=== PATIENT | male | born 1970 | race Caucasian/White ===

== ENCOUNTER → 2018-12-04 | Outpatient (CLI) | payer BC ==
--- NOTE | 2018-12-04 17:59 | P.SLEEP ---
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 According to the , the patient has very loud snoring and he was noted to quit breathing at nighttime. This of still is a concern for obstruct victor manuel sleep apnea and the patient was referred to me for further investigation. The patient says that he sleeps fine. He goes to bed at around 11:30 PM wakes up 7 AM in the morning. He works out of his house and he doesn't do any major or long-distance driving. He feels fine during the day specially when he sleeps a good 6 hours. Denies having any major hypersomnia or sleepiness during the day. He falls asleep easily within a few minutes. He does not take any naps during the day. He prefers to sleep on his side and he watches TV in his bedroom. He does drink caffeinated beverages in the form of coffee approximately 4 of them on a daily basis. He used to weight 150 pounds and currently is up to 275 and he has gained significant amount of weight in the order of 25 pounds over the past 10 years. He wakes up once or twice in the middle of the night. No reported unusual movements or behavior during sleep. No episodes of any dreamlike images or hallucinations when falling sleep or while waking up from sleep. No reported episodes of sudden muscle weakness or paralysis when laughing or when excited and there is no reported history of motor vehicle accident because of feeling drowsy or sleepy. He snoring and then worsens as the patient is gaining weight and the patient is currently trying to lose some. He has a brother with obstructive sleep apnea. There is no substance abuse. No head trauma, concussion or meningitis. No history of any psychiatric disorder. Review of Systems Constitutional: Reports daytime sleepiness, Reports fatigue, Reports weight gain Eyes: denies as per HPI, denies blurred vision, denies bulging eye, denies decreased vision, denies diplopia, denies discharge, denies dry eye, denies irritation, denies itching, denies pain, denies photophobia, denies loss of peripheral vision, denies loss of vision, denies tunnel vision/blind spots Ears: deny: decreased hearing, ear discharge, earache, tinnitus Ears, nose, mouth and throat: Denies headache, Denies sore throat Breasts: absent: as per HPI, gynecomastia Cardiovascular: Denies chest pain, Denies shortness of breath Respiratory: Reports snoring Gastrointestinal: Reports as per HPI Musculoskeletal: Reports as per HPI Musculoskeletal: absent: ankle pain, ankle stiffness, ankle swelling, as per HPI, elbow pain, elbow stiffness, elbow swelling, foot pain, foot stiffness, foot swelling, hand pain, hand stiffness, hand swelling, hip pain, hip stiffness, hip swelling, knee pain, knee stiffness, knee swelling, shoulder pain, shoulder stiffness, shoulder swelling, wrist pain, wrist stiffness, wrist swelling Integumentary: Reports as per HPI Neurological: Reports as per HPI Psychiatric: Reports as per HPI Endocrine: Reports as per HPI, Reports fatigue Hematologic/Lymphatic: Reports as per HPI Allergic/Immunologic: Reports as per HPI Past Medical History Past Medical History: Diabetes Mellitus, Hyperlipidemia, Hypertension Past Surgical History: No Surgical Hx Reported Smoking Status: Never smoker Past Alcohol Use History: Occasional Past Drug Use History: None Reported - Past Family History Brother(s) Family Medical History: Sleep Apnea/CPAP/BIPAP Medications and Allergies Home Medications and Allergies Comment(s): Omeprazole 20 mg by mouth daily, metformin 1000 mg once a day, lisinopril 20 mg by mouth daily and Lipitor some milligrams by mouth daily. Physical Exam Vitals: EP is 127/83, pulse is 84, respirations 16, temperature 98.5, saturation 6% on room air, weight is 248, height is 5 feet and 10 inches, BMI 35.5, 13 inches and saturations are 96% on room air. The patient appeared well nourished and normally developed. Vital signs as documented. Head exam is unremarkable. No scleral icterus or corneal arcus noted. Neck is without jugular venous distension, thyromegaly, or carotid bruits. Patient has a Mallampati class IV with significant crowding of the posterior oropharynx. Carotid upstrokes are brisk bilaterally. Lungs are clear to auscultation and percussion. Cardiac exam reveals the PMI to be normally sized and situated. Rhythm is regular. First and second heart sounds normal. No murmurs, rubs or gallops. Abdominal exam reveals normal bowel sounds, no masses, no organomegaly and no aortic enlargement. Extremities are nonedematous and both femoral and pedal pulses are normal.Examination of the skin revealed no evidence of significant rashes, suspicious appearing nevi or other concerning lesions. Neurologically the patient is awake and alert and there is no focal neurological deficits. Assessment and Plan Plan: Assessment 1 loud snoring along with witnessed apneas, consider underlying obstructive sleep apnea 2 hypersomnia/fatigue likely secondary to VIVIANA 3 obesity with a BMI of 35.5 4 diabetes mellitus type 2 currently on metformin 5 hypertension well controlled with lisinopril 6 hyperlipidemia well-controlled with Lipitor Plan Encourage weight loss. We'll ask the patient to implement sleep hygiene measures. We will plan to proceed with screening polysomnogram due to increased suspicion for obstructive sleep apnea. We'll decide on treatment based on results of sleep study. This will largely depend on his symptoms and the severity of his underlying obstructive sleep apnea is present. We'll continue to follow. Sleep Note - Sleep Note Sleep Note: Temperature: Pulse Rate: 84 Respiratory Rate: 16 Blood Pressure: 127/83 SpO2: 96% Height: 5 feet and 10 inches Weight: 148 pounds BMI: 35.5 Neck Circumference: 18 inches
== END | disposition home or self-care (01) ==
LOC: SLEEP 16:11
PROVIDERS: ATTEND Internal Medicine Critical Care Medicine
DX: Z53.9 Procedure and treatment not carried out, unspecified reason (principal)

== ENCOUNTER → 2019-05-07 | Outpatient (CLI) | payer BC ==
--- NOTE | 2019-05-07 15:55 | PN ---
PROGRESS NOTE This is a 49-year-old male patient diagnosed having severe symptomatic obstructive sleep apnea with an AHI of 70. The patient was given a VPAP Auto, minimum EPAP of 10, maximum pressure of 22, with a pressure support of 4. Today he is coming in for a compliancy check. The patient reports that he is doing great. He is feeling much improved. He has much more energy during the day. He does not fall asleep during the day or while performing routine activities. I checked his compliance data, and over the past 30 days the patient has been averaging around 7.6 hours of VPAP use per night. VPAP use for more than 4 hours is 100%. Average pressure utilized is 21/17. Leak is 17 L/minute with a tidal volume of 500 and a minute ventilation of 10.1 liters. AHI is down to 2.1. He is utilizing a medium-sized Simplus full-face mask. I noted that the patient has gained weight. At the time of his initial diagnosis he used to weight 248 and currently he is up to 261. Despite his weight gain, the patient reports good response, he is very happy with his overall clinical response, and his Bellaire score is down to zero. REVIEW OF SYSTEMS: Fourteen-point review of systems was done. Positive findings were all mentioned above in the history of present illness. No major hypersomnia or sleepiness. No nocturnal chest pain, aerophagia, nausea, vomiting, gas in his stomach or abdominal distention or flatus. It is positive for weight gain on the order of 10 to 11 pounds since his last evaluation here in the sleep center. PHYSICAL EXAMINATION: BP is 140/75, pulse 70, respirations 16, weight 261, temperature 98.3, saturation 95% on room air. GENERAL APPEARANCE: Calm, comfortable. HEAD: Atraumatic, normocephalic. NECK: Supple. No JVD. No goiter or neck masses. Mallampati class IV. LUNGS: Clear to auscultation. HEART: Heart sounds are regular rate and rhythm. Normal S1, S2. No S3, S4. No murmurs. ABDOMEN: Obese, soft, nontender. Organs cannot accurately palpated. There is no direct tenderness, rebound tenderness or guarding. EXTREMITIES: No edema. No cyanosis or clubbing. NEUROLOGIC: Alert and oriented x3. No focal neurological deficits. PSYCHIATRIC: Negative for anxiety or depression. IMPRESSION: 1. Severe obstructive sleep apnea with an apnea/hypopnea index of 70, currently on VPAP Auto with the above-mentioned settings. Treatment has been extremely successful. 2. Hypersomnia, recovered. 3. Obesity. Current weight is up to 261. 4. Hypersomnia. Bellaire score is down to zero. 5. Diabetes mellitus. 6. Hypertension. 7. Hyperlipidemia. PLAN: 1. Encourage weight loss. 2. Continue using BiPAP, and the patient is on the VPAP Auto mode. 3. Clinically improved and the patient is benefitting from his treatment. No need for any further adjustments. Renew the mask and supplies and see me back in a year's time in followup. No other complaints otherwise for now. MMODL / IJN: [id number] /
== END | disposition home or self-care (01) ==
LOC: SLEEP 13:27
PROVIDERS: ATTEND Internal Medicine Critical Care Medicine
DX: G47.33 Obstructive sleep apnea (adult) (pediatric) (principal); E66.9 Obesity, unspecified; E11.9 Type 2 diabetes mellitus without complications; I10 Essential (primary) hypertension; E78.5 Hyperlipidemia, unspecified; Z99.89 Dependence on other enabling machines and devices

== ENCOUNTER 2020-02-10 11:59 | Day surgery (SDC) | payer BC ==
[2020-02-10] MEDS ORDERED: LIDOCAINE 1% (10MG/ML) FOR IV START INTRADERMA ONE (12:31)
[2020-02-10] MEDS ORDERED: LACTATED RINGERS 1,000 ML IV ONE (12:31)
[2020-02-10 12:41] LABS: Glucose,Whole Blood 96 mg/dL (75-99)
[2020-02-10] MEDS ORDERED: MIDAZOLAM 2 MG/2 ML VIAL ONE (12:47)
[2020-02-10] MEDS ORDERED: LIDOCAINE 1% INJ 10MG/ML (20 ML MDV) ONE (12:47)
[2020-02-10] MEDS ORDERED: fentaNYL (PF) 50 MCG/ML 2 ML AMP ONE (12:47)
[2020-02-10] MEDS ORDERED: PROPOFOL 10 MG/ML 20 ML VIAL IV ONE (12:47)
--- NOTE | 2020-02-10 13:24 | P.PCN ---
Date of Procedure: 02/10/20 Description of Procedure: BRIEF HISTORY: Patient is a 49-year-old male presenting for outpatient colonoscopy for screening for malignant neoplasm of the colon. No change in bowel habits, blood per rectum or abdominal pain reported. Denies any family history of colon cancer. PROCEDURE PERFORMED: Colonoscopy with polypectomy. PREOPERATIVE DIAGNOSIS: Screening for malignant neoplasm in the colon. ESTIMATED BLOOD LOSS: Minimal. IV sedation per Anesthesia. PROCEDURE: After informed consent was obtained, the patient, was brought into the endoscopy unit. IV sedation was administered by Anesthesia under continuous monitoring. Digital rectal examination was normal. Initially the Olympus CF-190 flexible video colonoscope was then inserted in the rectum, gradually advanced into the cecum without any difficulty. Careful examination was performed as the scope was gradually being withdrawn. Ileocecal valve and the appendiceal orifice were visualized and appeared normal. Prep was excellent. Mucosa of the cecum, ascending colon, transverse colon, descending colon, sigmoid colon, and rectum appeared normal. 3 polyps removed with cold snare polypectomy measuring 4 mm from the transverse colon, 3 mm from the descending colon and 4 mm from the sigmoid colon. A few scattered diverticula noted in the sigmoid colon. Retroflexion was performed in the rectum and no lesions were seen. The patient tolerated the procedure well. IMPRESSION: 3 polyps removed with cold snare polypectomy from the transverse colon, descending colon and sigmoid colon. Mild sigmoid diverticulosis. RECOMMENDATIONS: Findings of this examination were discussed with the patient and his family. Okay to resume diet. Okay to resume medication. Await pathology from polypectomies. Would recommend repeat colonoscopy in 5 years pending pathology from polypectomies.
[2020-02-10 13:27] VITALS: RESP 16
[2020-02-10 13:44] VITALS: BP 120/79; PULSE 64
== END 2020-02-10 14:15 | disposition home or self-care (01) ==
LOC: ORWHC2ENDO 11:59
PROVIDERS: ATTEND Internal Medicine
DX: Z12.11 Encounter for screening for malignant neoplasm of colon (principal); D12.3 Benign neoplasm of transverse colon; D12.4 Benign neoplasm of descending colon; K63.5 Polyp of colon; K57.30 Diverticulosis of large intestine without perforation or abscess without bleeding; I10 Essential (primary) hypertension; G47.33 Obstructive sleep apnea (adult) (pediatric); E78.5 Hyperlipidemia, unspecified; E11.9 Type 2 diabetes mellitus without complications; K21.9 Gastro-esophageal reflux disease without esophagitis; Z88.1 Allergy status to other antibiotic agents; Z79.84 Long term (current) use of oral hypoglycemic drugs; Z79.899 Other long term (current) drug therapy
CPT/HCPCS: 88305; 45385; J2250; J2001; J3010; J2704

== ENCOUNTER 2021-02-18 06:18 | Inpatient (IN) | payer BC ==
[2021-02-18] MEDS ORDERED: ASPIRIN 81 MG PO STA (06:44)
[2021-02-18] MEDS ORDERED: NITROGLYCERIN SL TABS 0.4 MG TAB SUBLINGUAL STA (06:45)
--- NOTE | 2021-02-18 06:50 | ED ---
Chest Pain HPI - General Chief Complaint: Chest Pain Stated Complaint: Chest Pain Time Seen by Provider: 02/18/21 06:33 Source: patient, RN notes reviewed Mode of arrival: ambulatory Limitations: no limitations - History of Present Illness Initial Comments: 50-year-old male presents emergency Department with chief complaint of chest discomfort. Patient states that he woke around 5:30 and had symptoms. Patient states that he started having pain in his chest that radiated out, pain in his upper back. Patient states that this feels better if he presses on his upper back. Started noticed some achiness in his jaw which seemed out of the usual. Denies any diaphoretic episodes, nausea vomiting. Does have a history reflux states it does not feel anything similar. Patient does have a history of diabetes, hyperlipidemia. Patient states he does take hypertension meds but states that it's more for diuretic. Patient has no history of aortic issues no prior cardiac cath, no prior stress test. Patient did take 281 mg aspirin prior arrival. - Related Data Home Medications Medication Instructions Recorded Confirmed Omeprazole 20 mg PO HS 02/06/20 02/18/21 Pravastatin Sodium [Pravachol] 10 mg PO HS 02/06/20 02/18/21 metFORMIN HCL 500 mg PO HS 02/06/20 02/18/21 Aspirin EC [Ecotrin Low Dose] 162 mg PO ONCE PRN 02/18/21 02/18/21 lisinopriL [Zestril] 10 mg PO HS 02/18/21 02/18/21 Allergies Allergy/AdvReac Type Severity Reaction Status Date / Time clarithromycin [From Biaxin] Allergy Dyspnea Verified 02/18/21 08:14 Review of Systems ROS Statement: Those systems with pertinent positive or pertinent negative responses have been documented in the HPI. ROS Other: All systems not noted in ROS Statement are negative. EKG Findings - EKG Comments: EKG Findings:: EKG performed at 6:34 normal sinus rhythm rate of 66 NM 180 QRS 88 QT/QTC 426 / 440 Past Medical History Past Medical History: Diabetes Mellitus, GERD/Reflux, Hyperlipidemia, Hypertension, Sleep Apnea/CPAP/BIPAP Additional Past Medical History / Comment(s): NOT TAKING MEDS FOR BP ( PATIENT STATES HE DOESNT BELIEVE HE HAS HIGH BP). BIPAP. History of Any Multi-Drug Resistant Organisms: None Reported Past Surgical History: No Surgical Hx Reported Additional Past Surgical History / Comment(s): WISMER. COLONOSCOPY/EGD. Past Anesthesia/Blood Transfusion Reactions: No Reported Reaction Past Psychological History: No Psychological Hx Reported Smoking Status: Current every day smoker Past Alcohol Use History: Occasional Past Drug Use History: None Reported - Past Family History Brother(s) Family Medical History: Sleep Apnea/CPAP/BIPAP General Exam Limitations: no limitations General appearance: alert, in no apparent distress Head exam: Present: atraumatic, normocephalic, normal inspection Eye exam: Present: normal appearance, PERRL, EOMI. Absent: scleral icterus, conjunctival injection, periorbital swelling ENT exam: Present: normal exam, normal oropharynx, mucous membranes moist Neck exam: Present: normal inspection, full ROM. Absent: tenderness, meningismus, lymphadenopathy Respiratory exam: Present: normal lung sounds bilaterally. Absent: respiratory distress, wheezes, rales, rhonchi, stridor Cardiovascular Exam: Present: regular rate, normal rhythm, normal heart sounds. Absent: systolic murmur, diastolic murmur, rubs, gallop, clicks GI/Abdominal exam: Present: soft, normal bowel sounds. Absent: distended, tenderness, guarding, rebound, rigid Course Vital Signs 02/18/21 02/18/21 02/18/21 06:29 06:36 07:09 Temperature 98.2 F Pulse Rate 65 68 65 Respiratory 18 17 18 Rate Blood Pressure 136/89 145/106 118/74 O2 Sat by Pulse 97 96 Oximetry 02/18/21 07:48 Temperature Pulse Rate 63 Respiratory Rate Blood Pressure 118/89 O2 Sat by Pulse Oximetry Chest Pain MDM - [facility] Patient had relief of chest discomfort with nitro. Nitropaste was applied. Patient's initial labs are unremarkable. Patient be admitted for cardiac evaluation could cardiology, echocardiogram, repeat labs. Disposition Clinical Impression: Chest pain Disposition: ADMITTED IP TO THIS HOSP Condition: Fair Referrals: Cezar Madrigal MD [Primary Care Provider] - 1-2 days
--- NOTE | 2021-02-18 06:59 | XR ---
EXAMINATION TYPE: XR chest 2V DATE OF EXAM: 02/18/2021 COMPARISON: NONE HISTORY: Chest pain : FINDINGS: Heart and mediastinum are normal. There is small area of subsegmental atelectasis left lower lobe. Th ere are no hilar masses. There are chest leads. Costophrenic angles are clear. IMPRESSION: Minimal subsegmental atelectasis left lower lobe. Normal heart.
[2021-02-18 07:10] VITALS: RESP 18
[2021-02-18] MEDS ORDERED: NITROGLYCERIN OINT 1 INCH/GM PACKET TOPICAL STA (07:28)
[2021-02-18 07:33] LABS: Basophils # (A) 0.1 k/uL (0-0.2); Basophils % (A) 1 %; Eosinophils # (A) 0.3 k/uL (0-0.7); Eosinophils % (A) 3 %; HCT 46.9 % (39.0-53.0); HGB 15.5 gm/dL (13.0-17.5); Lymphocytes # (A) 1.8 k/uL (1.0-4.8); Lymphocytes % (A) 23 %; MCH 31.7 pg (25.0-35.0); MCHC 33.1 g/dL (31.0-37.0); MCV 95.6 fL (80.0-100.0); Mean Platelet Volume 7.6; Monocytes # (A) 0.5 k/uL (0-1.0); Monocytes % (A) 6 %; Neutrophils # (A) 5.2 k/uL (1.3-7.7); Neutrophils % (A) 65 %; Platelet Count 269 k/uL (150-450); RDW 13.5 % (11.5-15.5); WBC 7.9 k/uL (3.8-10.6)
[2021-02-18 07:51] LABS: ALT 28 U/L (4-49); AST 28 U/L (17-59); African American GFR (CKD) >90 (>60 ml/min/1.73 sqM); Albumin 3.9 g/dL (3.5-5.0); Alkaline Phosphatase 67 U/L (38-126); Anion Gap 10 mmol/L; Blood Urea Nitrogen 17 mg/dL (9-20); Calcium 9.6 mg/dL (8.4-10.2); Carbon Dioxide 22 mmol/L (22-30); Chloride 105 mmol/L (98-107); Glucose 158 mg/dL (74-99); Lipase 106 U/L (23-300); Magnesium 1.9 mg/dL (1.6-2.3); Non-African American GFR(CKD) >90 (>60 ml/min/1.73 sqM); Potassium 4.4 mmol/L (3.5-5.1); Sodium 137 mmol/L (137-145); Total Bilirubin 0.4 mg/dL (0.2-1.3); Total Protein 6.8 g/dL (6.3-8.2)
[2021-02-18 07:52] LABS: INR 0.9 (<1.2); Partial Thromboplastin Time 23.1 sec (22.0-30.0); Prothrombin Time 9.9 sec (9.0-12.0)
[2021-02-18] MEDS ORDERED: NITROGLYCERIN SL TABS 0.4 MG TAB SUBLINGUAL PRN ×2 (08:31→13:26)
[2021-02-18] MEDS ORDERED: HEPARIN SODIUM 1,000 UN/ML (10ML VL) IV PRN (09:26)
[2021-02-18] MEDS ORDERED: HEPARIN SODIUM 1,000 UN/ML (10ML VL) IV ONE (09:26)
[2021-02-18] MEDS ORDERED: ATORVASTATIN 80 MG TAB PO STA (09:27)
[2021-02-18] MEDS ORDERED: ALPRAZolam 0.25 MG TAB PO PRN (09:27)
[2021-02-18] MEDS ORDERED: ALPRAZolam 0.5 MG TAB PO PRN (09:27)
[2021-02-18] MEDS ORDERED: HEPARIN SOD,PORK IN 0.45% NACL 25,000 UNIT in 0.45% NACL 1 250ML.BAG IV SCH (09:30)
--- NOTE | 2021-02-18 09:42 | P.CRDCN ---
History of Present Illness History of present illness: HISTORY OF PRESENTING ILLNESS This is a pleasant 50-year-old male past medical history significant for type 2 diabetes, chronic nicotine dependence, shortness sleep apnea, dyslipidemia. 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 We have been asked to see in consultation for chest pain. Patient is seen and examined at bedside, patient states this morning he had acute onset of chest pain, woke him up out of sleep around 5:30am. Pain located in the center of his chest, radiated up to his jaw and his back. His jaw felt like an aching pain and he had pressure in his upper back. He states the p ain was intermittent, he took it aspirin and the pain eventually resolved however then returned again. Patient presented to the emergency department for further evaluation. He states in the ER in Triage the chest pain returned, he was given sublingual nitroglycerin and had improvement in symptoms. He denies any associated diaphoresis, nausea, shortness of breath, lightheadedness, dizziness, syncope. He denies any history of UT, coronary artery disease, hypertension, stroke, seizure. He denies any aggravating factors. He denies any symptoms of orthopnea PND. He is a current every day smoker. He denies any alcohol or illicit drug use. He denies any family history of heart disease. DIAGNOSTICS EKG reveals sinus rhythm, heart 66, nonspecific ST or T-wave abnormalities. No prior EKG to compare. Chest xray report revealed minimal atelectasis left lower lobe. No acute cardiopulmonary process. Laboratory reviewed, CBC unremarkable, sodium 137, potassium 4.4, BUN 17, serum creatinine 0.8, glucose 158, magnesium 1.9, troponin negative 1, proBNP 33, lipase within normal limits. Current home medications include metformin 500 mg daily, lisinopril 10 mg nightly, pravastatin 10 mg nightly, omeprazole 20 mg nightly, aspirin 162mg PRN REVIEW OF SYSTEMS At the time of my exam: CONSTITUTIONAL: Denies fever or chills. CARDIOVASCULAR: + chest pain with radiation to jaw and upper back, Denies shortness of breath, orthopnea, PND or palpitations. RESPIRATORY: Denies cough. GASTROINTESTINAL: Denies abdominal pain, diarrhea, constipation, nausea or vomiting. MUSCULOSKELETAL: Denies myalgias. NEUROLOGIC: Denies numbness, tingling, headache or weakness. ENDOCRINE: Denies fatigue, weight change, polydipsia or polyurina. GENITOURINARY: Denies burning, hematuria or urgency with micturation. HEMATOLOGIC: Denies history of anemia or bleeding. PHYSICAL EXAMINATION Blood pressure 106/79, heart 61, afebrile and saturation 97% on room air CONSTITUTIONAL: No apparent distress. HEENT: Head is normocephalic. Pupils are equal, round. Sclerae anicteric. Mucous membranes of the mouth are moist. No JVD. No carotid bruit. CHEST EXAMINATION: Lungs are clear to auscultation. No chest wall tenderness is noted on palpation or with deep breathing. HEART EXAMINATION: Regular rate and rhythm. S1, S2 heard. No murmurs, gallops or rub. ABDOMEN: Soft, nontender. Positive bowel sounds. EXTREMITIES: 2+ peripheral pulses, no lower extremity edema and no calf tenderness. SKIN:warm, dry NEUROLOGIC EXAMINATION: Patient is awake, alert and oriented x3. ASSESSMENT Unstable angina Type 2 diabetes Chronic nicotine dependence History of obstructive sleep apnea History of hyperlipidemia PLAN -Patient's symptoms are concerning for unstable angina, we are recommending cardiac catheterization at this time. Patient agreeable. -I have discussed the risks, benefits and alternative therapies for the above- mentioned procedure and for both sedation/analgesia as well as necessary blood product administration, if indicated, as they pertain to this patient. The patient has indicated understanding and acceptance of the risks and procedures discussed. Questions have been answered appropriately and he is agreeable to move forward with the above-stated procedure. -We will start IV heparin drip, continue aspirin and statin, PRN nitroglycerin -Obtain 2D echocardiogram and doppler study to assess cardiac structure and function. -Smoking cessation discussed and highly recommended. -Further recommendations based on clinical course Thank you kindly for this consultation. Nurse Practitioner note has been reviewed, I agree with a documented findings and plan of care. Patient was seen and examined. Past Medical History Past Medical History: Diabetes Mellitus, GERD/Reflux, Hearing Disorder / Deafness, Hyperlipidemia, Osteoarthritis (OA), Sleep Apnea/CPAP/BIPAP Additional Past Medical History / Comment(s): Pt states he takes zestril to protect his kidneys/not hypertensive, NIDDM, benign colon polyp, diverticular di sease, VIVIANA/bipap used, bilateral occasional tinnitisR shoulder arthritis, occasional migraines. History of Any Multi-Drug Resistant Organisms: None Reported Past Surgical History: No Surgical Hx Reported Additional Past Surgical History / Comment(s): EGD, colonoscopy Past Anesthesia/Blood Transfusion Reactions: No Reported Reaction Smoking Status: Current every day smoker - Past Family History Brother(s) Family Medical History: Sleep Apnea/CPAP/BIPAP Father Family Medical History: Cancer Additional Family Medical History / Comment(s): Father had prostate cancer. He is . Mother Family Medical History: Dementia, Diabetes Mellitus Additional Family Medical History / Comment(s): Mother had "heart problems" later in life. She is . Medications and Allergies Home Medications Medication Instructions Recorded Confirmed Type Omeprazole 20 mg PO HS 02/06/20 02/18/21 History Pravastatin Sodium [Pravachol] 10 mg PO HS 02/06/20 02/18/21 History metFORMIN HCL 500 mg PO HS 02/06/20 02/18/21 History Aspirin EC [Ecotrin Low Dose] 162 mg PO ONCE PRN 02/18/21 02/18/21 History lisinopriL [Zestril] 10 mg PO HS 02/18/21 02/18/21 History Allergies Allergy/AdvReac Type Severity Reaction Status Date / Time clarithromycin [From Biaxin] Allergy Dyspnea Verified 02/18/21 08:14 Physical Exam Vitals: Vital Signs Temp Pulse Resp BP Pulse Ox 02/18/21 08:48 61 18 106/79 97 02/18/21 07:48 63 118/89 02/18/21 07:09 65 18 118/74 96 02/18/21 06:36 68 17 145/106 02/18/21 06:29 98.2 F 65 18 136/89 97 Intake and Output 02/17/21 02/18/21 02/18/21 22:59 06:59 14:59 Other: Weight 113.398 kg 113.398 kg Results 02/18/21 06:50 02/18/21 06:50 Cardiac Enzymes 02/18/21 02/18/21 Range/Units 06:50 06:50 AST 28 (17-59) U/L Troponin I <0.012 (0.000-0.034) ng/mL Coagulation 02/18/21 Range/Units 06:50 PT 9.9 (9.0-12.0) sec APTT 23.1 (22.0-30.0) sec CBC 02/18/21 Range/Units 06:50 WBC 7.9 (3.8-10.6) k/uL RBC 4.90 (4.30-5.90) m/uL Hgb 15.5 (13.0-17.5) gm/dL Hct 46.9 (39.0-53.0) % Plt Count 269 (150-450) k/uL Comprehensive Metabolic Panel 02/18/21 Range/Units 06:50 Sodium 137 (137-145) mmol/L Potassium 4.4 (3.5-5.1) mmol/L Chloride 105 (98-107) mmol/L Carbon Dioxide 22 (22-30) mmol/L BUN 17 (9-20) mg/dL Creatinine 0.82 (0.66-1.25) mg/dL Glucose 158 H (74-99) mg/dL Calcium 9.6 (8.4-10.2) mg/dL AST 28 (17-59) U/L ALT 28 (4-49) U/L Alkaline Phosphatase 67 (38-126) U/L Total Protein 6.8 (6.3-8.2) g/dL Albumin 3.9 (3.5-5.0) g/dL Current Medications Generic Name Dose Route Start Last Admin Trade Name Freq PRN Reason Stop Dose Admin Aspirin 325 mg 02/19/21 09:00 Aspirin 325 Mg Tab PO DAILY [facility] Heparin Sodium (Porcine) 4,000 unit 02/18/21 09:26 Heparin Sodium 1,000 Un/Ml (10ml Vl) IV 02/18/21 09:27 ONCE ONE Heparin Sodium (Porcine) 0 unit 02/18/21 09:26 Heparin Sodium 1,000 Un/Ml (10ml Vl) IV PER PROTOCOL PRN Low PTT Protocol Heparin Sodium/Sodium Chloride 250 mls @ 10 mls/hr 02/18/21 09:30 25,000 unit/ Sodium Chloride IV .Q24H [facility] Protocol 8.8185 UNITS/KG/HR Nitroglycerin 0.4 mg 02/18/21 08:31 Nitroglycerin Sl Tabs 0.4 Mg Tab SUBLINGUAL Q5M PRN Chest Pain Intake and Output 02/17/21 02/18/21 02/18/21 22:59 06:59 14:59 Other: Weight 113.398 kg 113.398 kg Patient Weight 02/19/21 06:59 Weight 113.398 kg 02/18/21 06:50 02/18/21 06:50
--- NOTE | 2021-02-18 10:01 | P.HPIM ---
History of Present Illness This is a 50-year-old male with past medical history significant for underlying diabetes who presented to the emergency room today with chest pain. Patient said that he woke up this morning and experienced heaviness in the upper chest and across his entire chest to his back. He said that this radiated to his neck and jaw. He rated the pain as 6 out of 10 in severity but his at bedside said he was actually 10 out of 10 patient was pretty uncomfortable. Patient said that he felt clammy. He denies any nausea or diaphoresis. He denies any previous cardiac history. He is usually fairly active and does not have any gregorio st pain or shortness of breath. He has a long history of tobacco abuse and smoked approximately 1 pack per day for the last 36 years. Review of Systems Review of system: 14 points review of systems were obtained and were negative except to what were mentioned in the HPI. Past Medical History Past Medical History: Diabetes Mellitus, GERD/Reflux, Hearing Disorder / Deafness, Hyperlipidemia, Osteoarthritis (OA), Sleep Apnea/CPAP/BIPAP Additional Past Medical History / Comment(s): Pt states he takes zestril to protect his kidneys/not hypertensive, NIDDM, benign colon polyp, diverticular disease, VIVIANA/bipap used, bilateral occasional tinnitisR shoulder arthritis, occasional migraines. History of Any Multi-Drug Resistant Organisms: None Reported Past Surgical History: No Surgical Hx Reported Additional Past Surgical History / Comment(s): EGD, colonoscopy Past Anesthesia/Blood Transfusion Reactions: No Reported Reaction Smoking Status: Current every day smoker - Past Family History Brother(s) Family Medical History: Sleep Apnea/CPAP/BIPAP Father Family Medical History: Cancer Additional Family Medical History / Comment(s): Father had prostate cancer. He is . Mother Family Medical History: Dementia, Diabetes Mellitus Additional Family Medical History / Comment(s): Mother had "heart problems" later in life. She is . Medications and Allergies Home Medications Medication Instructions Recorded Confirmed Type Omeprazole 20 mg PO HS 02/06/20 02/18/21 History Pravastatin Sodium [Pravachol] 10 mg PO HS 02/06/20 02/18/21 History metFORMIN HCL 500 mg PO HS 02/06/20 02/18/21 History Aspirin EC [Ecotrin Low Dose] 162 mg PO ONCE PRN 02/18/21 02/18/21 History lisinopriL [Zestril] 10 mg PO HS 02/18/21 02/18/21 History Allergies Allergy/AdvReac Type Severity Reaction Status Date / Time clarithromycin [From Biaxin] Allergy Dyspnea Verified 02/18/21 08:14 Physical Exam Vitals: Vital Signs Temp Pulse Pulse Resp BP BP Pulse Ox 02/18/21 09:37 98.0 F 64 18 105/65 96 02/18/21 08:48 61 18 106/79 97 02/18/21 07:48 63 118/89 02/18/21 07:09 65 18 118/74 96 02/18/21 06:36 68 17 145/106 02/18/21 06:29 98.2 F 65 18 136/89 97 Intake and Output 02/17/21 02/18/21 02/18/21 22:59 06:59 14:59 Other: Weight 113.398 kg 113.398 kg General: The patient is awake and alert, in no distress Eye: there is normal conjunctiva bilaterally. Neck: The neck is supple, there is no JVD. Cardiovascular: Normal S1-S2, no S3-S4, no murmurs. Respiratory: Lungs clear to auscultation bilaterally Gastrointestinal: Abdomen is soft, nontender Musculoskeletal: There is no pedal edema. Neurological:. Speech is normal. Skin: Skin is warm and dry Results CBC & Chem 7: 02/18/21 06:50 02/18/21 06:50 Labs: Abnormal Lab Results - Last 24 Hours (Table) 02/18/21 Range/Units 06:50 Glucose 158 H (74-99) mg/dL Thrombosis Risk Factor Assmnt - Choose All That Apply Any of the Below Risk Factors Present?: Yes Each Factor Represents 1 point: Age 41-60 years, Obesity (BMI >25) Other Risk Factors: No Other congenital or acquired thrombophilia - If yes, enter type in comment: No Thrombosis Risk Factor Assessment Total Risk Factor Score: 2 Thrombosis Risk Factor Assessment Level: Low Risk Assessment and Plan Assessment: 50-year-old male presenting to the emergency room with chest pain. 1. Unstable angina: Patient was evaluated in the ER and twelve-lead EKG showed no acute ischemic changes. Initial troponin is negative. Patient was placed on observation with telemetry monitoring. He was seen and evaluated by cardiology. Plan for left heart catheterization as recommended by cardiology. 2. Type 2 diabetes, hold home dose of metformin and continue sliding scale insulin. Today, I reviewed his medication list and lab work results. Patient started on Lipitor and aspirin. We will continue current management.
[2021-02-18] MEDS: SODIUM CHLORIDE 0.9% 1,000 ML in EMPTY BAG 1 BAG IV SCH ×2 (10:08→16:48)
[2021-02-18 10:12] LABS: INR 0.9 (<1.2)
[2021-02-18] MEDS ORDERED: ASPIRIN 81 MG PO SCH (11:15)
[2021-02-18] MEDS ORDERED: HEPARIN SODIUM 1,000 UN/ML (10ML VL) ONE (11:40)
[2021-02-18] MEDS ORDERED: VERAPAMIL 2.5 MG/ML 2 ML AMP ONE (11:40)
[2021-02-18] MEDS ORDERED: fentaNYL (PF) 50 MCG/ML 2 ML AMP ONE (11:40)
[2021-02-18] MEDS ORDERED: LIDOCAINE 1% INJ 10MG/ML (20 ML MDV) ONE (11:40)
[2021-02-18] MEDS ORDERED: fentaNYL (PF) 50 MCG/ML 2 ML AMP IV ONE (11:46)
[2021-02-18] MEDS ORDERED: IV FLUID CONTINUATION 800 ML IV ONE (11:46)
[2021-02-18] MEDS ORDERED: LIDOCAINE 1% INJ 10MG/ML (20 ML MDV) SQ ONE (12:02)
[2021-02-18] MEDS: MIDAZOLAM 2 MG/2 ML VIAL IV ONE ×2 (12:05→12:23)
[2021-02-18] MEDS ORDERED: VERAPAMIL SYRINGE (5 MG/10 ML) INTRAARTER ONE (12:10)
[2021-02-18] MEDS ORDERED: PRASUGREL 10 MG TAB ONE (12:21)
[2021-02-18] MEDS ORDERED: PRASUGREL 10 MG TAB PO ONE (12:23)
[2021-02-18] MEDS ORDERED: IOPAMIDOL-370 125ML BTL INJ ONE (12:33)
[2021-02-18] MEDS ORDERED: IOPAMIDOL-370 100ML BTL INJ ONE ×2 (12:59→13:20)
[2021-02-18] MEDS ORDERED: ATROPINE SULFATE 0.1 MG/ML 10ML SYRINGE IV PRN (13:26)
[2021-02-18] MEDS ORDERED: RX INFO: IV CONTRAST WAS GIVEN 1 EACH MISC MISCELLANE PRN (13:26)
[2021-02-18] MEDS ORDERED: ZOLPIDEM 5 MG TAB PO PRN (13:26)
[2021-02-18] MEDS ORDERED: MAG HYDROX/AL HYDROX/SIMETH 30 ML CUP PO PRN (13:26)
[2021-02-18] MEDS ORDERED: SODIUM CHLORIDE 0.9% 1,000 ML IV SCH (13:30)
--- NOTE | 2021-02-18 14:16 | CC ---
CARDIAC CATHETERIZATION REPORT Mr. Hull is a 50-year-old male with known history of hyperlipidemia and diabetes and chronic tobacco use who presented with symptoms of chest and jaw discomfort of sudden onset. In view of that and in view of his risk factors, recommendation was made regarding cardiac catheterization. The procedure as well as its risks and complications were discussed with the patient, who was in full understanding and agreement. PROCEDURE DESCRIPTION: Patient was brought to the prosthetic lab technician in a fasting, semi-sedated state after receiving fentanyl and Benadryl and achieving a moderate conscious sedated state. Using Xylocaine anesthesia and Seldinger technique, a 6-Cuban sheath was introduced in the right radial artery. Selective right and right and left coronary angiography was performed using 5-Cuban 3.5 bend right and left Dorys catheters. Multiple views were taken of the arteries, including hemiaxial views. The right Dorys was used to cross the aortic valve and left ventricular end-diastolic pressure was calculated. Following that, catheters were removed and images were reviewed. Of note, the patient received 5000 units of intravenous heparin as well as intra-arterial verapamil. FINDINGS: LEFT MAIN: This is a short-sized vessel bifurcating into left circumflex and left anterior descending coronary artery. Left main artery has no evidence of high-grade stenosis. LEFT ANTERIOR DESCENDING ARTERY: This vessel is totally occluded proximally with no significant antegrade flow. LEFT CIRCUMFLEX: This is a nondominant vessel giving rise to 3 obtuse marginal branches. The first one is very proximal and appears to be in the territory of ramus intermedius. At the bifurcation of the second obtuse marginal branch there is an 80% stenosis involving the takeoff of the second obtuse marginal branch and beyond the takeoff. The rest of the vessel has mild intimal disease without any evidence of high- grade stenosis. RIGHT CORONARY ARTERY: This is a large dominant vessel bifurcating into PDA and posterolateral segment and branches. The right artery has diffuse intimal disease throughout its course of 20% to 30% without any evidence of high-grade stenosis. COLLATERALS: There is collateral of the right PDA to the LAD distally through the septal card hand. LEFT VENTRICULOGRAM: Left ventriculogram was not performed. HEMODYNAMICS: There was no gradient across the aortic valve. The left ventricular end- diastolic pressure was 25 to 30 mmHg. CONCLUSION: 1. Acutely occluded proximal LAD. 2. Significant disease in the second obtuse marginal branch and the mid left circumflex. 3. Mild disease in the right coronary artery. 4. Gonny-nw-[id number] collaterals. 5. Elevated left ventricular end-diastolic pressure. RECOMMENDATIONS: In view of findings and anatomy, I have recommended proceeding with angioplasty and stenting of the LAD. The procedure as well as its risks and complications were discussed with the patient, who is in full understanding and agreement. MMYANET / ARMANDO: [id number] /
--- NOTE | 2021-02-18 14:31 | PTCA ---
PERCUTANEOUSTRANS CORORONARY ANGIOGRAPHY Mr. Hull is a 50-year-old male who presented with evidence of new-onset angina pectoris and mild troponin elevation consistent with [id number]-elevation myocardial infarction. He underwent cardiac catheterization and was found to have acutely occluded proximal LAD. In view of that, recommendation was made regarding angioplasty and stenting. The procedure as well as its risks and complications were discussed with the patient, who was in full understanding and agreement. PROCEDURE DESCRIPTION: A 6-Armenian EBU 3.75 guiding catheter was introduced into the system. After cannulating the left main ostium, a 0.014 balanced medium J-wire with the help of a FineCross microcatheter was used to cross the total occlusion. The wire was positioned distally. Subsequently a 2.5 x 12 mm Trek balloon was advanced and inflations in the proximal segment were done at 8 atmospheres. Following that, the balloon was removed and there was evidence of no flow in the mid segment. An Howell aspiration catheter was then advanced and one run was done. Following that, the 2.5 x 12 mm Trek balloon was re- advanced and inflations in the mid segment were done at maximum of 8 atmospheres. Following that, the balloon was removed and a 3.0 x 23 mm Skypoint stent was deployed in the mid segment, post-dilated at 14 atmospheres. After removing the balloon, a 3.0 x 50 mm Xience [place] was advanced and deployed proximal to the first stent and post- dilated at 16 atmospheres. Following that, a 3.5 x 23 mm Xience [place] stent was deployed in the proximal segment of the LAD and post-dilated at 16 atmospheres. Following that, a 3.0 x 15 mm Xience [place] stent was deployed in the mid segment and post-dilated at 16 atmospheres. Following that, a [place] [employer] [place] IVUS catheter was introduced and images were obtained. After removing the catheter, a 3.25 x 15 mm NC Emerge balloon was advanced and inflations in the mid segment were done at a maximum of 12 atmospheres. After removing the balloon, a 4.0 x 20 mm NC Trek balloon was advanced and inflations in the proximal stent to a maximum of 12 atmospheres were done. After the last inflation, after appropriate wait, the balloon and the guidewire were withdrawn back into the guiding catheter. Images were obtained and repeated. Those images revealed stable successful stenting. At that point, the guiding catheter, the balloon and the guidewire were removed. The sheath was removed. Hemostasis was obtained with deployment of a TR band. There was no immediate complication. Patient was returned to his room in stable condition. Of note, the patient received oral loading dose of Effient as well as an additional 3000 units of intravenous heparin. His ACT was followed. He had mild chest discomfort and EKG changes that resolved at the end of the procedure. RESULTS: 1. Successful stenting of the proximal LAD with reduction of stenosis from 100% to 0%. 2. Successful stenting of the mid LAD with reduction of stenosis from 90% to 0%. There was slow flow in the diagonal branch consistent with evidence to suggest a thrombus migration. RECOMMENDATIONS: Patient will be continued on aspirin, Effient, beta catarino, JARRETT inhibitor and statin. He will be evaluated down the road to undergo percutaneous revascularization of his left circumflex. Those findings and recommendations were discussed with the patient and his family, and they are in full understanding and agreement. Duration of sedation was 77 minutes. MOO / MARYCARMENN: [id number] /
[2021-02-18] MEDS: SPIRONOLACTONE 25 MG TAB PO SCH (15:24)
[2021-02-18 15:29] LABS: Glucose,Whole Blood 126 mg/dL (75-99)
[2021-02-18] MEDS: INSULIN ASPART (NovoLOG) 100 UNIT/ML VIAL SQ SCH ×3 (16:49→20:23)
--- NOTE | 2021-02-18 18:08 | ECHOF ---
Referral Reason:chest pain MEASUREMENTS -------- HEIGHT: 180.3 cm WEIGHT: 113.4 kg BP: 118/89 RVIDd: 3.4 cm (< 3.3) IVSd: 1.2 cm (0.6 - 1.1) LVIDd: 5.2 cm (3.9 - 5.3) LVPWd: 1.5 cm (0.6 - 1.1) IVSs: 1.8 cm LVIDs: 3.9 cm LVPWs: 1.8 cm LAESV Index (A-L): 25.80 ml/m Ao Diam: 3.8 cm (2.0 - 3.7) AV Cusp: 2.3 cm (1.5 - 2.6) LA Diam: 3.4 cm (2.7 - 3.8) MV EXCURSION: 19.132 mm (> 18.000) MV EF SLOPE: 90 mm/s (70 - 150) EPSS: 1.7 cm MV E Lee: 0.60 m/s MV DecT: 185 ms MV A Lee: 0.82 m/s MV E/A Ratio: 0.73 RAP: 5.00 mmHg RVSP: 25.82 mmHg FINDINGS -------- Sinus rhythm. This was a technically difficult study with suboptimal views. The left ventricular size is normal. There is mild concentric left ventricular hypertrophy. Overa ll left ventricular systolic function is mild-moderately impaired with, an EF between 40 - 45 %. Ap ical anterior LV wall motion is hypokinetic. Apical lateral LV wall motion is hypokinetic. Apic al septum LV wall motion is hypokinetic. The right ventricle is mildly enlarged. Normal LA size by volume 22+/-6 ml/m2. The right atrial size is normal. xx ml of Lumason was utilized for enhancement of images. Interatrial and interventricular septum intact. The aortic valve is trileaflet, and appears structurally normal. No aortic stenosis or regurgitation. The mitral valve is normal. Mild mitral regurgitation is present. The tricuspid valve appears structurally normal. Mild tricuspid regurgitation present. Right vent ricular systolic pressure is normal at < 35 mmHg. The right ventricular systolic pressure, as measu red by Doppler, is 25.82mmHg. There is no pulmonic regurgitation present. The aortic root size is normal. IVC Not well visulized. There is no pericardial effusion. CONCLUSIONS -------- 1. This was a technically difficult study with suboptimal views. 2. There is mild concentric left ventricular hypertrophy. 3. Overall left ventricular systolic function is mild-moderately impaired with, an EF between 40 - 45 %. 4. Apical anterior LV wall motion is hypokinetic. 5. Apical lateral LV wall motion is hypokinetic. 6. Apical septum LV wall motion is hypokinetic. 7. The right ventricle is mildly enlarged. 8. Normal LA size by volume 22+/-6 ml/m2. 9. The aortic valve is trileaflet, and appears structurally normal. No aortic stenosis or regurgitati on. 10. Mild mitral regurgitation is present. 11. Mild tricuspid regurgitation present. CLINICAL PSYCHOLOGY PROFESSOR: Justyna Mabry RDCS
[2021-02-18 19:52] LABS: Glucose,Whole Blood 136 mg/dL (75-99)
[2021-02-18] MEDS: METOPROLOL TARTRATE 25 MG TAB PO SCH (20:23)
[2021-02-18] MEDS ORDERED: lisinopriL 5 MG TAB PO SCH (21:00)
[2021-02-18] MEDS ORDERED: ATORVASTATIN 80 MG TAB PO SCH (21:00)
[2021-02-18] MEDS ORDERED: lisinopriL 10 MG TAB PO SCH (21:00)
[2021-02-19] MEDS: SODIUM CHLORIDE 0.9% 1,000 ML in EMPTY BAG 1 BAG IV SCH ×2 (04:34→10:33)
[2021-02-19 05:46] LABS: Glucose,Whole Blood 127 mg/dL (75-99)
[2021-02-19] MEDS: INSULIN ASPART (NovoLOG) 100 UNIT/ML VIAL SQ SCH (06:17)
[2021-02-19] MEDS ORDERED: HEPARIN SODIUM,PORCINE 10,000 UNIT in SODIUM CHLORIDE 0.9% 1,000 ML IRRIGATION PRN (07:00)
[2021-02-19] MEDS ORDERED: HEPARIN SODIUM,PORCINE 2,500 UNIT in SODIUM CHLORIDE 0.9% 250 ML IRRIGATION PRN (07:00)
[2021-02-19 08:03] VITALS: BP 116/77; PULSE 67; TEMP 97.7
[2021-02-19] MEDS: METOPROLOL TARTRATE 25 MG TAB PO SCH (08:05)
[2021-02-19] MEDS: SPIRONOLACTONE 25 MG TAB PO SCH (08:05)
[2021-02-19 08:18] LABS: Basophils # (A) 0.1 k/uL (0-0.2); Basophils % (A) 1 %; Eosinophils # (A) 0.3 k/uL (0-0.7); Eosinophils % (A) 3 %; HCT 47.7 % (39.0-53.0); HGB 15.8 gm/dL (13.0-17.5); Lymphocytes # (A) 2.1 k/uL (1.0-4.8); Lymphocytes % (A) 24 %; MCH 31.7 pg (25.0-35.0); MCHC 33.1 g/dL (31.0-37.0); MCV 95.7 fL (80.0-100.0); Mean Platelet Volume 7.3; Monocytes # (A) 0.6 k/uL (0-1.0); Monocytes % (A) 7 %; Neutrophils # (A) 5.5 k/uL (1.3-7.7); Neutrophils % (A) 63 %; Platelet Count 254 k/uL (150-450); RBC 4.98 m/uL (4.30-5.90); RDW 13.6 % (11.5-15.5); WBC 8.7 k/uL (3.8-10.6)
[2021-02-19 08:27] LABS: Prothrombin Time 10.7 sec (9.0-12.0)
[2021-02-19 08:30] LABS: African American GFR (CKD) >90 (>60 ml/min/1.73 sqM); Non-African American GFR(CKD) >90 (>60 ml/min/1.73 sqM)
[2021-02-19 08:31] LABS: African American GFR (CKD) >90 (>60 ml/min/1.73 sqM); Anion Gap 7 mmol/L; Blood Urea Nitrogen 13 mg/dL (9-20); Calcium 10.1 mg/dL (8.4-10.2); Carbon Dioxide 23 mmol/L (22-30); Chloride 106 mmol/L (98-107); Glucose 124 mg/dL (74-99); Non-African American GFR(CKD) >90 (>60 ml/min/1.73 sqM); Potassium 4.4 mmol/L (3.5-5.1); Sodium 136 mmol/L (137-145)
[2021-02-19] MEDS ORDERED: PRASUGREL 10 MG TAB PO SCH (09:00)
[2021-02-19] MEDS ORDERED: ASPIRIN 81 MG PO SCH (09:00)
[2021-02-19] MEDS ORDERED: ASPIRIN 325 MG TAB PO SCH (09:00)
[2021-02-19 10:55] VITALS: BMI 35.4
[2021-02-19 11:17] LABS: Chol/HDL Ratio 4.64 Ratio; LDL Cholesterol,Calculated 113.3 mg/dL (0.0-131.0)
--- NOTE | 2021-02-19 11:17 | PN ---
PROGRESS NOTE Mr. Hull is a 50-year-old male with known history of diabetes, history of chronic tobacco use, who presented with symptoms of chest discomfort and evidence of non-STEMI. He underwent cardiac catheterization and was found to have acutely occluded proximal LAD with collaterals from the left system as well as obstructive disease in the mid LAD and evidence of significant disease in the circumflex. He underwent stenting of the LAD. He is doing well this morning. His breathing is stable. He is denying any chest pain. He denies any dizziness or palpitations. He continues to be on aspirin once a day, Effient 10 mg daily, Lipitor 80 mg daily, Zestril 5 mg daily, metoprolol tartrate 25 mg twice a day, and spironolactone 25 mg daily. PHYSICAL EXAMINATION: Blood pressure 116/70 with a heart rate of 60. LUNGS: Clear. Heart S1, S2. Regular rate and rhythm. S1, S2. No S3. No rub. ABDOMEN: Soft, nontender. Right radial pulse intact. LAB DATA: BUN and creatinine of 13 and 0.32. Potassium 4.4, hemoglobin 15.8. EKG shows no acute changes. IMPRESSION: 1. Status post non-STEMI with stenting of totally occluded LAD. 2. Significant disease in the nondominant left circumflex. 3. History of hypertension. 4. Diabetes. 5. Smoking. 6. Hyperlipidemia. RECOMMENDATIONS: Patient should be able to be discharged home today. He will be seen in the office next week and be evaluated to undergo readmission to undergo elective stenting of the left circumflex. MMODL / IJN: [id number] /
[2021-02-19 11:42] LABS: Glucose,Whole Blood 118 mg/dL (75-99)
--- NOTE | 2021-02-19 12:51 | P.DS ---
Providers Date of admission: 02/19/21 09:51 Expected date of discharge: 02/19/21 Attending physician: Carmita Solis Consults: 02/18/21 08:32 Consult Physician Urgent Consulting Provider: Cesar Arceo Consult Reason/Comments: chest pain Do you want consulting provider notified?: Yes 02/18/21 13:26 Consult Physician Routine Consulting Provider: [facility] Consult Reason/Comments: Post Interventional patient Do you want consulting provider notified?: Already Contacted Primary care physician: [facility] Course: This is a 50-year-old male with past medical history significant for underlying diabetes who presented to the emergency room with chest pain. Patient was evaluated in the ER and 12-lead EKG showed no acute ischemic changes. Initial troponin was negative. Patient was admitted to the hospital with telemetry monitoring and cardiology consult. He was started on IV heparin with concerns about unstable angina the second troponin was slightly elevated. Patient was taken for left heart cath showing evidence of acutely occluded proximal LAD status post successful stenting to proximal and mid LAD. Patient was started on dual antiplatelet therapy and optimal medical management. Echocardiogram showed ejection fraction of 40-45% with no significant valvular abnormalities. Patient was cleared by cardiology for discharge home. Plan to follow-up in the office as directed. Patient will be discharged home in a stable condition. Physical exam: General: The patient is awake and alert, in no distress Eye: there is normal conjunctiva bilaterally. Neck: The neck is supple, there is no JVD. Cardiovascular: Normal S1-S2, no S3-S4, no murmurs. Respiratory: Lungs clear to auscultation bilaterally Gastrointestinal: Abdomen is soft, nontender Musculoskeletal: There is no pedal edema. Neurological:. Speech is normal. Skin: Skin is warm and dry Patient Condition at Discharge: Fair Plan - Discharge Summary Discharge Rx Participant: No New Discharge Prescriptions: New Prasugrel [Effient] 10 mg PO DAILY #90 tab Atorvastatin [Lipitor] 80 mg PO HS #90 tab lisinopriL [Zestril] 5 mg PO HS #90 tab Metoprolol Tartrate [Lopressor] 25 mg PO BID #180 tab Nitroglycerin Sl Tabs [Nitrostat] 0.4 mg SUBLINGUAL Q5M PRN #25 tab PRN Reason: Chest Pain Aspirin 81 mg PO DAILY tab Continue metFORMIN HCL 500 mg PO HS Omeprazole 20 mg PO HS Aspirin EC [Ecotrin Low Dose] 162 mg PO ONCE PRN PRN Reason: Pain Discontinued Lisinopril-Hctz 10-12.5 mg [Zestoretic 10-12.5] 1 tab PO DAILY Pravastatin Sodium [Pravachol] 20 mg PO HS Discharge Medication List Omeprazole 20 mg PO HS 02/06/20 [History] metFORMIN HCL 500 mg PO HS 02/06/20 [History] Aspirin EC [Ecotrin Low Dose] 162 mg PO ONCE PRN 02/18/21 [History] Aspirin 81 mg PO DAILY tab 02/19/21 [Rx] Atorvastatin [Lipitor] 80 mg PO HS #90 tab 02/19/21 [Rx] Metoprolol Tartrate [Lopressor] 25 mg PO BID #180 tab 02/19/21 [Rx] Nitroglycerin Sl Tabs [Nitrostat] 0.4 mg SUBLINGUAL Q5M PRN #25 tab 02/19/21 [Rx] Prasugrel [Effient] 10 mg PO DAILY #90 tab 02/19/21 [Rx] lisinopriL [Zestril] 5 mg PO HS #90 tab 02/19/21 [Rx] Follow up Appointment(s)/Referral(s): Mikaela Henriquez MD [STAFF PHYSICIAN] - 1 Week Cezar Madrigal MD [Primary Care Provider] - 1-2 days Discharge Disposition: HOME SELF-CARE
== END 2021-02-19 13:45 | disposition home or self-care (01) | DRG 247 ==
LOC: EC 06:18 → 6NMEDSUR 08:39 → 3SCARD 15:14 → OBSVTOIN 02-19 09:51
PROVIDERS: ADMIT Internal Medicine; ATTEND Internal Medicine
PROC: 027035Z Dilation of Coronary Artery, One Artery with Two Drug-eluting Intraluminal Devices, Percutaneous Approach (ICD-10-PCS; principal; 2021-02-18 12:05)
PROC: 4A023N7 Measurement of Cardiac Sampling and Pressure, Left Heart, Percutaneous Approach (ICD-10-PCS; 2021-02-18 12:05)
PROC: B2111ZZ Fluoroscopy of Multiple Coronary Arteries using Low Osmolar Contrast (ICD-10-PCS; 2021-02-18 12:05)
DX: I21.4 Non-ST elevation (NSTEMI) myocardial infarction (principal); I25.110 Atherosclerotic heart disease of native coronary artery with unstable angina pectoris; E11.9 Type 2 diabetes mellitus without complications; E78.5 Hyperlipidemia, unspecified; F17.200 Nicotine dependence, unspecified, uncomplicated; H91.90 Unspecified hearing loss, unspecified ear; I10 Essential (primary) hypertension; I25.2 Old myocardial infarction; I25.82 Chronic total occlusion of coronary artery; Z20.822 Contact with and (suspected) exposure to COVID-19; G47.33 Obstructive sleep apnea (adult) (pediatric); K21.9 Gastro-esophageal reflux disease without esophagitis; M19.90 Unspecified osteoarthritis, unspecified site; Z83.3 Family history of diabetes mellitus; Z80.42 Family history of malignant neoplasm of prostate; Z79.899 Other long term (current) drug therapy; Z79.84 Long term (current) use of oral hypoglycemic drugs; Z79.4 Long term (current) use of insulin; Z79.02 Long term (current) use of antithrombotics/antiplatelets
CPT/HCPCS: 36415; 71046; 80048; 80053; 80061; 82565; 83690; 83735; 83880; 84484; 85025; 85610; 85730; 87635; 92978; 93005; 93306; 93458; 99285

== ENCOUNTER 2021-03-16 06:34 | Day surgery (SDC) | payer BC ==
[~2021-03-16 06:34] MED LIST: ALPRAZolam 0.25 MG TAB PO PRN; ALPRAZolam 0.5 MG TAB PO PRN; NITROGLYCERIN SL TABS 0.4 MG TAB SUBLINGUAL PRN; SODIUM CHLORIDE 0.9% 1,000 ML in EMPTY BAG 1 BAG IV SCH
[2021-03-16] MEDS ORDERED: SODIUM CHLORIDE 0.9% 1,000 ML IV ONE (06:44)
[2021-03-16] MEDS ORDERED: ATORVASTATIN 80 MG TAB PO ONE (07:00)
[2021-03-16] MEDS ORDERED: HEPARIN SODIUM,PORCINE 10,000 UNIT in SODIUM CHLORIDE 0.9% 1,000 ML IRRIGATION PRN (07:00)
[2021-03-16] MEDS ORDERED: HEPARIN SODIUM,PORCINE 2,500 UNIT in SODIUM CHLORIDE 0.9% 250 ML IRRIGATION PRN (07:00)
[2021-03-16] MEDS ORDERED: ASPIRIN 325 MG TAB PO ONE (07:00)
[2021-03-16 07:06] LABS: Glucose,Whole Blood 115 mg/dL (75-99)
[2021-03-16 07:18] VITALS: RESP 16; TEMP 98.5
[2021-03-16] MEDS ORDERED: HEPARIN SODIUM 1,000 UN/ML (10ML VL) ONE (07:31)
[2021-03-16] MEDS ORDERED: fentaNYL (PF) 50 MCG/ML 5 ML AMP IV ONE (07:41)
[2021-03-16] MEDS: MIDAZOLAM 2 MG/2 ML VIAL IV ONE ×2 (07:42→07:52)
[2021-03-16] MEDS ORDERED: LIDOCAINE 1% INJ 10MG/ML (20 ML MDV) SQ ONE (07:51)
[2021-03-16] MEDS ORDERED: VERAPAMIL SYRINGE (5 MG/10 ML) INTRAARTER ONE (07:55)
[2021-03-16] MEDS: HEPARIN SODIUM 1,000 UN/ML (10ML VL) IV ONE ×2 (07:57→08:14)
[2021-03-16] MEDS ORDERED: NITROGLYCERIN 1000MCG/10ML SYRINGE INTRACORON ONE (08:10)
[2021-03-16] MEDS ORDERED: IOPAMIDOL-370 125ML BTL INJ ONE (08:25)
[2021-03-16] MEDS ORDERED: MAG HYDROX/AL HYDROX/SIMETH 30 ML CUP PO PRN (08:39)
[2021-03-16] MEDS ORDERED: ZOLPIDEM 5 MG TAB PO PRN (08:39)
[2021-03-16] MEDS ORDERED: ATROPINE SULFATE 0.1 MG/ML 10ML SYRINGE IV PRN (08:39)
[2021-03-16] MEDS ORDERED: NITROGLYCERIN SL TABS 0.4 MG TAB SUBLINGUAL PRN (08:39)
[2021-03-16] MEDS ORDERED: RX INFO: IV CONTRAST WAS GIVEN 1 EACH MISC MISCELLANE PRN (08:39)
[2021-03-16] MEDS ORDERED: SODIUM CHLORIDE 0.9% 1,000 ML IV SCH (08:45)
[2021-03-16] MEDS ORDERED: METOPROLOL TARTRATE 25 MG TAB PO SCH (09:00)
--- NOTE | 2021-03-16 11:04 | PTCA ---
PERCUTANEOUSTRANS CORORONARY ANGIOGRAPHY Mr. Hull is a 51-year-old male who presented about a month ago with an acute myocardial infarction, was found to have a totally occluded proximal LAD and underwent stenting of the LAD. At that time was found to have significant obstructive disease involving the left circumflex. In view of that, recommendation was made regarding angioplasty and stenting. The procedure as well as the risks and the complications were discussed with the patient, who is in full understanding and agreement. PROCEDURE DESCRIPTION: Patient was brought to the poultry hatchery laborer in fasting semi-sedated state after receiving fentanyl and Benadryl and achieving moderate conscious sedated state. Using Xylocaine anesthesia and Seldinger technique, a 6-Czech sheath was introduced in the right radial artery. A 6-Czech EBU 3.75 guiding catheter was introduced into the system. After cannulating the left main, a 0.014 balanced medium weight J-wire was advanced across the lesion, positioned distal left circumflex. A second 0.014 balanced medium weight J-wire was advanced and positioned in the first obtuse marginal branch. Subsequently 2.5 x 12 mm Trek balloon was advanced and one inflation over the first obtuse marginal branch wire was done at a maximum of 10 atmospheres. Following that, the balloon was removed and a 2.5 x 18 mm Xience [place] stent was advanced, deployed and post-dilated at 16 atmospheres. Following that, the balloon was removed and a 3.25 x 8 mm NC Trek balloon was advanced and inflation of proximal segment of the stent was performed. After the last inflation, after appropriate wait, the balloon and the guidewire were withdrawn back in the guiding catheter. Images were obtained and repeated. Those images revealed stable successful stenting. At that point, the guiding catheter, the balloon and the guidewire removed. The sheath was removed. Hemostasis was obtained with deployment of a TR band. There was no immediate complication. Patient was returned to his room in stable condition. Of note, the patient received 8000 units of intravenous heparin, his ACT was followed. He had no chest discomfort or significant EKG changes with the inflations. RESULTS: 1. Successful stenting of the first obtuse marginal branch and proximal left circumflex with reduction of stenosis from 80% to 0%. 2. Patent stents to the LAD with good flow into the diagonal branch. RECOMMENDATIONS: Patient will be continued on aspirin, Effient, beta blockers, andria inhibitors and statin. The importance of dual antiplatelet treatment were discussed with the patient and his family, who are in full understanding and agreement. He will continue on the dual antiplatelet treatment for 1 year because of his initial presentation with an acute myocardial infarction. Those findings and recommendations were discussed with the patient and his family who are in full understanding and agreement. Duration of sedation is 40 minutes. MOO / ARMANDO: [id number] /
[2021-03-16 13:42] VITALS: BMI 36.3
[2021-03-16 15:10] VITALS: BP 129/83; PULSE 51
[2021-03-16] MEDS ORDERED: lisinopriL 5 MG TAB PO SCH (21:00)
[2021-03-16] MEDS ORDERED: NON FORMULARY DRUG (Omeprazole [Omeprazole] 20 MG Capsule.Dr) PO SCH (21:00)
[2021-03-17] MEDS ORDERED: PRASUGREL 10 MG TAB PO SCH (09:00)
[2021-03-17] MEDS ORDERED: ASPIRIN 81 MG PO SCH (09:00)
[2021-03-17] MEDS ORDERED: ATORVASTATIN 80 MG TAB PO SCH (21:00)
== END 2021-03-16 13:13 | disposition home or self-care (01) ==
LOC: CATHCVL 06:34
PROVIDERS: ATTEND Internal Medicine Interventional Cardiology
DX: I25.10 Atherosclerotic heart disease of native coronary artery without angina pectoris (principal); E11.9 Type 2 diabetes mellitus without complications; E78.2 Mixed hyperlipidemia; I25.5 Ischemic cardiomyopathy; Z20.822 Contact with and (suspected) exposure to COVID-19; Z87.891 Personal history of nicotine dependence; Z95.5 Presence of coronary angioplasty implant and graft; Z79.82 Long term (current) use of aspirin; Z79.84 Long term (current) use of oral hypoglycemic drugs; Z79.899 Other long term (current) drug therapy; Z88.1 Allergy status to other antibiotic agents
CPT/HCPCS: 87635; C9600; C1769 ×2; C1887; C1894; C1725 ×2; C1874; J2250; J2001; J3010; J1644; Q9967

== ENCOUNTER → 2021-11-23 | Outpatient (CLI) | payer BC ==
--- NOTE | 2021-11-23 14:17 | US ---
EXAMINATION TYPE: US abdomen complete DATE OF EXAM: 11/23/2021 COMPARISON: NONE CLINICAL HISTORY: R10.9 abd pain. TECHNIQUE: Multiple sonographic images of the abdomen are obtained. FINDINGS: EXAM MEASUREMENTS: Liver Length: 13.8 cm Gallbladder Wall: 0.2 cm CBD: 0.2 cm Spleen: 9.6 cm Right Kidney: 11.3 x 4.5 x 4.9 cm Left Kidney: 11.4 x 5.6 x 5.8 cm PAPER WOOD CUTTER NOTES: Patient of large body habitus, technically difficult study Pancreas: Tail obscured by overlying bowel gas Liver: attenuating, focal fatty sparing adjacent to gallbladder Gallbladder: wnl Evidence for sonographic Alva's sign: no CBD: limited views Spleen: very limited visualization due to overlying bowel gas Right Kidney: No hydronephrosis or masses seen Left Kidney: No hydronephrosis or masses seen Upper IVC: wnl Abd Aorta: wnl, somewhat limited visualization The intrahepatic portion of the IVC and proximal abdominal aorta are within normal limits. There is no evidence of cholelithiasis. Common bile duct is unremarkable. The visualized portions of the callahan creas are homogenous. The spleen is unremarkable. Kidneys are symmetric and free of hydronephrosis. No renal lesions are seen. IMPRESSION: Probable hepatic steatosis with areas of underlying focal fatty sparing.
== END | disposition home or self-care (01) ==
LOC: RADUSWWP 12:50
PROVIDERS: ATTEND Family Medicine
DX: R10.9 Unspecified abdominal pain (principal)
CPT/HCPCS: 76700

== ENCOUNTER → 2023-09-01 | Outpatient (CLI) | payer BC ==
--- NOTE | 2023-09-01 12:50 | US ---
EXAMINATION TYPE: US kidneys/renal and bladder DATE OF EXAM: 09/01/2023 COMPARISON: NONE CLINICAL INDICATION: Male, 53 years old with history of R92.8 ABN MAMMO; UTIs EXAM MEASUREMENTS: Right Kidney: 12.1x5.5x5.6 cm Left Kidney: 11.4x6.3x6.5 cm Right Kidney: There is a 2.3 x 2.1x 2.5 cm hypoechoic rounded area at the inferior lateral right kidn ey. Additional workup for mass is recommended. CT with contrast is recommended. Left Kidney: No hydronephrosis or masses seen Bladder: wall thickening Bilateral Jets seen: Yes There is no evidence for hydronephrosis at this point in time. No nephrolithiasis is seen. The urin pranav bladder is anechoic. Bilateral ureteral jets are seen. prominent prostate gland with internal calcification IMPRESSION: 2.5 cm masslike area on the right kidney. Additional evaluation with CT recommended.
== END | disposition home or self-care (01) ==
LOC: RADUSWWP 09:34
PROVIDERS: ATTEND Family Medicine
DX: N39.0 Urinary tract infection, site not specified (principal)
CPT/HCPCS: 76770

== ENCOUNTER → 2023-09-12 | Outpatient (CLI) | payer BC ==
[2023-09-12 07:04] LABS: African American GFR (CKD) >90 (>60 ml/min/1.73 sqM); Blood Urea Nitrogen 14 mg/dL (9-20); Non-African American GFR(CKD) >90 (>60 ml/min/1.73 sqM)
--- NOTE | 2023-09-12 08:25 | CT ---
EXAMINATION TYPE: CT abdomen wo/w con DATE OF EXAM: 09/12/2023 COMPARISON: NONE HISTORY: 53-year-old male Urinary tract infection, site not specified TECHNIQUE: Contiguous axial scanning of the abdomen before and after administration of 100 ml Isovue 300 IV contrast. Delayed images through the kidneys and coronal/sagittal reconstructions performed. CT DLP: 2033 mGycm Automated exposure control for dose reduction was used. FINDINGS: The heart is normal size without pericardial effusion. RCA coronary calcifications noted. Lung bases clear without pleural effusion. Mildly diminished attenuation of the hepatic parenchyma suggesting some fatty infiltration. Portal ve nous system is patent. No focal liver lesion or biliary ductal dilatation. Gallbladder is collapsed. Adrenal glands, spleen, and pancreas within normal limits. No nephrolithiasis or hydronephrosis. Mild perinephric stranding on both sides may reflect senescent change. Symmetric uptake and excretion of contrast from both kidneys with normal enhancement of the r enal parenchyma. There is a rounded contour along the lateral lower pole of the right kidney measuring 2.2 cm, suspect ed prominent contour lobulation rather than mass. Given the appearance on ultrasound, precautionary 3 -6 month follow-up ultrasound is recommended. No dilated small bowel, free fluid, or free air. A few scattered prominent but nonenlarged mesenteric lymph nodes are present. However, a more focal 1.5 cm area of soft tissue in the right-sided mid abd ominal mesentery is noted on axial image 46 and coronal image 62. Careful surveillance follow-up is a dvised. Small fatty umbilical hernia measuring 3.6 cm wide. Normal appendix. Mild stool burden. Mild scattered left-sided colonic diverticulosis. No pericolonic inflammatory change. Pelvis not imaged. Bones: Hypertrophic facet arthropathy mid to lower lumbar spine. No osseous destructive process. No m esenteric or retroperitoneal lymphadenopathy. IMPRESSION: 1. NO NEPHROLITHIASIS OR HYDRONEPHROSIS. MILD BILATERAL PERINEPHRIC STRANDING/EDEMA COULD REFLECT SEN ESCENT CHANGE OR UNDERLYING CHRONIC KIDNEY DISEASE. THE OVERALL RENAL PARENCHYMAL ENHANCEMENT APPEARS NORMAL. 2. ROUNDED 2.2 CM CONTOUR ALONG THE LATERAL LOWER POLE OF THE RIGHT KIDNEY, SUSPECT A PROMINENT CONTO UR LOBULATION RATHER THAN MASS. GIVEN THE APPEARANCE ON ULTRASOUND, PRECAUTIONARY 3-6 MONTH FOLLOW-UP ULTRASOUND IS RECOMMENDED. 3. ABNORMAL 1.5 CM AREA OF IRREGULAR SOFT TISSUE IN THE RIGHT MID ABDOMINAL MESENTERY. CONSIDER FURTH ER PET/CT EVALUATION AND ONCOLOGY FOLLOW-UP FOR APPROPRIATE SURVEILLANCE. AN EARLY CARCINOID OR DESMO ID TUMOR ARE NOT EXCLUDED AT THIS TIME. 4. MILD HEPATIC STEATOSIS. SCATTERED MILD LEFT-SIDED COLONIC DIVERTICULOSIS, AND A SMALL, 3.6 CM WIDE FATTY UMBILICAL HERNIA.
== END | disposition home or self-care (01) ==
LOC: RADCTMAIN 06:20
PROVIDERS: ATTEND Family Medicine
DX: K76.0 Fatty (change of) liver, not elsewhere classified (principal); K57.30 Diverticulosis of large intestine without perforation or abscess without bleeding; N39.0 Urinary tract infection, site not specified; E11.9 Type 2 diabetes mellitus without complications; K42.9 Umbilical hernia without obstruction or gangrene; R19.09 Other intra-abdominal and pelvic swelling, mass and lump; N28.89 Other specified disorders of kidney and ureter
CPT/HCPCS: 82565; 84520; 74170; 36415; Q9967

== ENCOUNTER → 2023-11-09 | Outpatient (CLI) | payer BC ==
--- NOTE | 2023-11-10 15:40 | PE ---
EXAMINATION TYPE: PET CT fusion skull to thigh DATE OF EXAM: 11/09/2023 COMPARISON: 09/12/2023 CT abdomen Prior PET/CT: None at this location HISTORY: Lymphoma TECHNIQUE: Following the intravenous administration of 12.7 mCi of F-18 FDG, whole body images are p erformed from the skull base to the midthigh. Images are reviewed on the computer in the coronal, ax ial, and sagittal planes. Reconstructed rotating images are created on independent workstation and r eviewed on the computer. A localization and attenuation correction CT is performed in conjunction w ith the PET scan. DLP: 1033.07 mGycm SCAN: Initial Blood glucose: 121 mg/dL Average Mediastinum SUV: 2.51 Average Liver SUV: 2.7 FINDINGS: NECK: There is mild uptake within the region of the anterior lateral left parotid gland, image 18, S UV 5.08. Metastatic lymph node should be considered. There is intense uptake within the posterior inf erior left parotid gland image 26, SUV 4.63. THORAX: No suspicious uptake ABDOMEN: No suspicious uptake PELVIS: No suspicious uptake OSSEOUS STRUCTURES: No suspicious uptake LOCALIZATION CT: Periumbilical hernia containing mesenteric fat without involvement loops of bowel is present. COMPARISON: The vague area of increased density within the right midabdomen appears less prominent on the current localization CT. No suspicious radiotracer is identified at this level. IMPRESSION: 1. There are 2 foci of increased uptake within the left parotid gland suspicious for metastatic disea se. Consider lymphoma within the differential. 2. Suspicious uptake within the right mid abdomen is not identified. Consider follow-up CT abdomen in 6 months.
== END | disposition home or self-care (01) ==
LOC: RADPETMAIN 13:20
PROVIDERS: ATTEND Internal Medicine
DX: R59.0 Localized enlarged lymph nodes (principal)
CPT/HCPCS: 78815; A9552

== ENCOUNTER → 2024-05-13 | Outpatient (CLI) | payer BC ==
[2024-05-13 12:13] LABS: African American GFR (CKD) >90 (>60 ml/min/1.73 sqM); Blood Urea Nitrogen 15 mg/dL (9-20); Non-African American GFR(CKD) >90 (>60 ml/min/1.73 sqM)
--- NOTE | 2024-05-13 13:29 | CT ---
EXAMINATION TYPE: CT abdomen pelvis w con CT DLP: 1980.3 mGycm, Automated exposure control for dose reduction was used. DATE OF EXAM: 05/13/2024 1:16 PM COMPARISON: PET/CT 11/09/2023, CT abdomen 09/12/2023, renal ultrasound 09/01/2023, abdominal ultrasound CLINICAL INDICATION:Male, 54 years old with history of R19.07 GENERALIZED INTRA-ABD AND PELVIC SWELLI NG,; retropertoneal mass TECHNIQUE: Standard CT of the abdomen and pelvis following the administration of 100 cc of Isovue 3 00 IV contrast material and oral contrast. Coronal and sagittal reformats were performed. FINDINGS: LOWER CHEST: Stable left lower lobe 1.2 cm pulmonary nodule (series 4, image 9). ABDOMEN LIVER: Diffusely hypoattenuating parenchyma. No focal lesion identified. GALLBLADDER AND BILE DUCTS: Unremarkable. PANCREAS: Unremarkable. SPLEEN: Unremarkable. ADRENAL GLANDS: Unremarkable. KIDNEYS AND URETERS: No evidence of hydronephrosis or renal calculus. The kidneys enhance symmetrical ly. Stable somewhat lobulated appearance of the inferior pole of the right kidney with cortical thinn ing identified. No new suspicious enhancing mass. Minimal similar perinephric fat stranding bilateral ly. Contrast is demonstrated within both collecting systems on the delayed phase. 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 PELVIS BLADDER: Unremarkable REPRODUCTIVE: Unremarkable. ABDOMEN & PELVIS STOMACH AND BOWEL: Stomach and duodenum are unremarkable. Enteric contrast reaches the mid small christa l. No focal bowel wall thickening or surrounding inflammatory changes. Redundant sigmoid colon. Scatt ered distal colonic diverticula without evidence for acute diverticulitis. The appendix is within nor mal limits. No evidence of bowel obstruction. PERITONEUM: No evidence of pneumoperitoneum or free fluid. Resolution previously demonstrated irregul ar soft tissue within the right mid abdomen mesentery. VASCULATURE: Mild atherosclerotic calcifications are present throughout the abdominal aorta and its b ranches. No evidence of aortic aneurysm. Pelvic phleboliths. MUSCULOSKELETAL: No acute osseous abnormalities. Degenerative changes of bilateral SI joints with ant erior bridging. LYMPH NODES: No evidence for lymphadenopathy. SOFT TISSUE/ABDOMINAL WALL: Marginal increase in size of fat filled umbilical hernia now measuring up to 4.2 cm in diameter, previously 3.6 cm. Additional small mesenteric vessels identified within the hernia. IMPRESSION: 1. No acute abdominal/pelvic process. 2. Stable appearance of the right renal lower pole without suspicious mass. 3. Resolution of previously demonstrated right mesentery soft tissue nodule. 4. Stable left lower lobe 1.2 cm pulmonary nodule which was not FDG avid on prior PET/CT. Follow-up C T chest in 12 months is recommended. 5. Marginal increase in size of small to moderate sized umbilical hernia containing fat and small mes enteric vessels. [facility], , 05/13/2024 1:27 PM
== END | disposition home or self-care (01) ==
LOC: RADCTMAIN 11:15
PROVIDERS: ATTEND Internal Medicine
DX: R19.07 Generalized intra-abdominal and pelvic swelling, mass and lump (principal); E11.9 Type 2 diabetes mellitus without complications; R91.1 Solitary pulmonary nodule; K42.9 Umbilical hernia without obstruction or gangrene; I70.0 Atherosclerosis of aorta; K57.30 Diverticulosis of large intestine without perforation or abscess without bleeding
CPT/HCPCS: 82565; 84520; 74177; 36415; Q9967